=== PATIENT | male | born 1950 | race Caucasian/White ===

== ENCOUNTER 2017-10-11 20:22 | Emergency (ER) | payer MEDICARE, BC ==
[2017-10-11] MEDS ORDERED: Sodium Chloride 0.9% 10 ML Syringe FLUSH PRN (20:38)
[2017-10-11] MEDS ORDERED: Sodium Chloride 0.9% 2.5 ML Syringe FLUSH PRN (20:38)
--- NOTE | 2017-10-11 20:43 | EDM.PDOC ---
ED HPI GENERAL MEDICAL PROBLEM - General Chief Complaint: Neuro Symptoms/Deficits Stated Complaint: FALL Time Seen by Provider: 10/11/17 20:32 - History of Present Illness INITIAL COMMENTS - FREE TEXT/NARRATIVE: HISTORY AND PHYSICAL: History of present illness: The patient is a 66-year-old male who comes via EMS with no stated cardiac pulmonary or neuro disease and presents after having an episode where he said he got very dizzy and then he fell hitting the back of his head and neck. He believes he lost consciousness but he is unable to tell me about any symptomatology prior to this event and he does not feel nauseated or have any chest pain currently. He tells me he had a normal day earlier without fever chills cough chest pain shortness of breath abdominal pain vomiting or diarrhea and he ate his meals. Currently he complains of back of the head pain and neck pain but no chest pain palpitation shortness of breath nausea or abdominal pain. He says that he has generalized weakness and feels weak all over. He has no mid or lower back pain. He is not a very good historian currently he is very slow to answer. The patient denies any alcohol or drug use tonight and says he ate normally earlier. When asked the patient if he felt weak or dizzy earlier he is not answering him somewhat confused but says he did not think that he felt weak earlier Review of systems: As per history of present illness and below otherwise all systems reviewed and negative. Past medical history: As per history of present illness and as reviewed below otherwise noncontributory. Surgical history: As per history of present illness and as reviewed below otherwise noncontributory. Social history: No reported history of drug or alcohol abuse. Family history: As per history of present illness and as reviewed below otherwise noncontributory. Physical exam: Gen.: Well-developed well-nourished man who is nontoxic and speaks very slowly and seems somewhat confused to me and has difficulty following my questioning pattern. Keep in mind that c-collar was maintained for a course of my exam HEENT: Atraumatic, normocephalic, c-collar is in place, there are no midline step-offs tenderness defects of the cervical spine, there is no facial swelling or facial trauma, pupils reactive, negative for conjunctival pallor or scleral icterus, mucous membranes moist, throat clear, neck supple, nontender, trachea midline. EOMs are intact and sclerae are not injected Lungs: Clear to auscultation, breath sounds equal bilaterally, chest nontender. Heart: S1S2, regular, negative for clicks, rubs, or JVD. Abdomen: Soft, nondistended, nontender. Negative for masses or hepatosplenomegaly. Negative for costovertebral tenderness. Pelvis: Stable nontender. Genitourinary: Deferred. Rectal: Deferred. Extremities: Atraumatic, negative for cords or calf pain. Neurovascular unremarkable. Full range of motion but the patient does have some tremulousness of his lower extremities when he tries to bend and extend them as if trying to exert a lot of effort. Patient's upper extremity strength is 5/5 throughout including grasps biceps and triceps and sensory is intact in these areas. Neuro: Awake, alert, oriented to person and place but not time Cranial nerves II through XII unremarkable. . Motor in the lower extremities is 4/5 and upper extremities is 5/5and sensory is grossly unremarkable throughout. Exam nonfocal. back: There are no midline step-offs in his defects of the thoracic or lumbar spine and no soft tissue ecchymosis abrasion contusions or soft tissue swellings are seen. Skin: Turgor is normal there is no diaphoresis and no overt rashes or lesions and there is no evidence of any soft tissue trauma that I can see Diagnostics: EKG CBC CMP alcohol level INR troponin TSH UA UDS CT scan of the head in the C- spine chest x-ray lactic acid Therapeutics: IV O2 monitor IV fluids 2213: After the CT scan results were obtained I consult of the neurosurgeon at [facility] in [place], Dr. Kee; he feels that the patient needs more workup such as CTA of the head and neck or MRI/MRA of the head neck and he is aware that we are unable to do that testing and I do not have neurology backup. He is recommending that we send the CT scan films to him so we can review and he wants the patient to be transferred to [place]. He says to me that he has more concerned about the cervical spine disease causing the syncope rather than a traumatic injury. At 2218 I discussed the case with Dr. Vee in the ER who also accepts the patient. All testing results will be sent with the patient and as of this dictation the patient has not given a urine sample for UA UDS. I will obtain that sample if he produces. Patient on my reevaluation looks much improved and his coloring is better and he is talking and more interactive than when he arrived. He is concerned about the transfer but is accepting. He has no motor deficits in his upper extremities and complains of neck pain but the c- collar will be maintained. He has no other complaints at this time. 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 Treatments [employer]ATE[employer]ETING [employer]ADER: Reports: Cervical Collar, IV/IO neck area Pain Score (Numeric/FACES): 7 - Related Data Allergies Allergy/AdvReac Type Severity Reaction Status Date / Time sulfamethoxazole Allergy Rash Verified 10/11/17 20:30 [From Bactrim] trimethoprim [From Bactrim] Allergy Rash Verified 10/11/17 20:30 Home Meds: Home Meds . [No Known Home Meds] 10/11/17 [History] Past Medical History HEENT History: Reports: None Cardiovascular History: Reports: None Respiratory History: Reports: None Gastrointestinal History: Reports: None Genitourinary History: Reports: None Musculoskeletal History: Reports: None Neurological History: Reports: None Psychiatric History: Reports: None Endocrine/Metabolic History: Reports: None Hematologic History: Reports: None Immunologic History: Reports: None Oncologic (Cancer) History: Reports: None Dermatologic History: Reports: None - Infectious Disease History Infectious Disease History: Reports: None - Past Surgical History Head Surgeries/Procedures: Reports: None Social & Family History - Family History Family Medical History: Noncontributory - Tobacco Use Smoking Status *Q: Current Every Day Smoker Years of Tobacco use: 5 Packs/Tins Daily: 0.5 - Caffeine Use Caffeine Use: Reports: Coffee - Recreational Drug Use Recreational Drug Use: No ED ROS GENERAL - Review of Systems Review Of Systems: ROS reveals no pertinent complaints other than HPI. ED EXAM, GENERAL - Physical Exam Exam: See Below (See dictation) Course - Vital Signs Last Recorded V/S: Last Vital Signs Temp 36.7 C 10/11/17 20:31 Pulse 66 10/11/17 21:24 Resp 18 10/11/17 21:24 BP 118/65 10/11/17 21:24 Pulse Ox 94 L 10/11/17 21:24 - Orders/Labs/Meds Orders: Active Orders 24 hr Category Date Time Status Cardiac Monitoring [RC] . DIRECTED Care 10/11/17 20:37 Active EKG Documentation Completion [RC] STAT Care 10/11/17 20:37 Active Oxygen Therapy, ED [RC] ASDIRECTED Care 10/11/17 20:37 Active Pulse Oximetry [RC] ASDIRECTED Care 10/11/17 20:37 Active Cervical Spine wo Cont [CT] Stat Exams 10/11/17 20:38 Taken Chest 1V Frontal [CR] Stat Exams 10/11/17 20:38 Taken Head wo Cont [CT] Stat Exams 10/11/17 20:38 Taken DRUG SCREEN, URINE [URCHEM] Stat Lab 10/11/17 20:37 Uncollected UA W/MICROSCOPIC [URIN] Stat Lab 10/11/17 20:37 Uncollected Sodium Chloride 0.9% [Normal Saline] 500 ml Med 10/11/17 20:45 Active IV STAT Sodium Chloride 0.9% [Saline Flush] Med 10/11/17 20:38 Active 10 ml FLUSH ASDIRECTED PRN Sodium Chloride 0.9% [Saline Flush] Med 10/11/17 20:38 Active 2.5 ml FLUSH ASDIRECTED PRN Saline Lock Insert [OM.PC] Stat Oth 10/11/17 20:37 Ordered Medication Orders Sodium Chloride (Normal Saline) 500 mls @ 999 mls/hr IV STAT PRADEEP Last Admin: 10/11/17 21:22 Dose: 999 mls/hr Sodium Chloride (Saline Flush) 10 ml FLUSH ASDIRECTED PRN PRN Reason: Keep Vein Open Sodium Chloride (Saline Flush) 2.5 ml FLUSH ASDIRECTED PRN PRN Reason: Keep Vein Open Labs: Laboratory Tests 10/11/17 10/11/17 10/11/17 Range/Units 20:44 20:44 20:44 WBC 7.02 (4.0-11.0) K/uL RBC 4.20 L (4.50-5.90) M/uL Hgb 13.5 (13.0-17.0) g/dL Hct 41.4 (38.0-50.0) % MCV 98.6 H (80.0-98.0) fL MCH 32.1 H (27.0-32.0) pg MCHC 32.6 (31.0-37.0) g/dL RDW Std Deviation 48.9 (28.0-62.0) fl RDW Coeff of Dangelo 14 (11.0-15.0) % Plt Count 206 (150-400) K/uL MPV 8.90 (7.40-12.00) fL Neut % (Auto) 79.1 (48.0-80.0) % Lymph % (Auto) 12.5 L (16.0-40.0) % Dickenson % (Auto) 7.0 (0.0-15.0) % Eos % (Auto) 1.0 (0.0-7.0) % Baso % (Auto) 0.4 (0.0-1.5) % Neut # (Auto) 5.6 (1.4-5.7) K/uL Lymph # (Auto) 0.9 (0.6-2.4) K/uL Dickenson # (Auto) 0.5 (0.0-0.8) K/uL Eos # (Auto) 0.1 (0.0-0.7) K/uL Baso # (Auto) 0.0 (0.0-0.1) K/uL Nucleated RBC % 0.0 /100WBC Nucleated RBCs # 0 K/uL INR 1.04 (0.86-1.11) Lactate (0.20-2.00) mmol/L Sodium 140 (136-146) mmol/L Potassium 4.9 (3.5-5.1) mmol/L Chloride 112 H (98-110) mmol/L Carbon Dioxide 20 L (21-31) mmol/L BUN 16 (6.0-23.0) mg/dL Creatinine 1.3 (0.6-1.5) mg/dL Est Cr Clr Drug Dosing 58.56 mL/min Estimated GFR (MDRD) 55.6 ml/min Glucose 120 H (60-110) mg/dL Calcium 9.6 (8.8-10.8) mg/dL Total Bilirubin 0.2 (0.1-1.5) mg/dL AST 18 (5-40) IU/L ALT 32 (8-54) IU/L Alkaline Phosphatase 42 (40-150) Troponin I < 0.10 (0.0-0.29) NG/ML Total Protein 5.9 L (6.0-8.0) g/dL Albumin 3.9 (3.4-4.8) g/dL Globulin 2.0 (2.0-3.5) g/dL Albumin/Globulin Ratio 2.0 (1.3-2.8) TSH 3rd Generation 0.89 (0.47-5.0) uIU/mL Ethyl Alcohol < 10.0 mg/dL 10/11/17 Range/Units 20:44 WBC (4.0-11.0) K/uL RBC (4.50-5.90) M/uL Hgb (13.0-17.0) g/dL Hct (38.0-50.0) % MCV (80.0-98.0) fL MCH (27.0-32.0) pg MCHC (31.0-37.0) g/dL RDW Std Deviation (28.0-62.0) fl RDW Coeff of Dangelo (11.0-15.0) % Plt Count (150-400) K/uL MPV (7.40-12.00) fL Neut % (Auto) (48.0-80.0) % Lymph % (Auto) (16.0-40.0) % Dickenson % (Auto) (0.0-15.0) % Eos % (Auto) (0.0-7.0) % Baso % (Auto) (0.0-1.5) % Neut # (Auto) (1.4-5.7) K/uL Lymph # (Auto) (0.6-2.4) K/uL Dickenson # (Auto) (0.0-0.8) K/uL Eos # (Auto) (0.0-0.7) K/uL Baso # (Auto) (0.0-0.1) K/uL Nucleated RBC % /100WBC Nucleated RBCs # K/uL INR (0.86-1.11) Lactate 1.1 (0.20-2.00) mmol/L Sodium (136-146) mmol/L Potassium (3.5-5.1) mmol/L Chloride (98-110) mmol/L Carbon Dioxide (21-31) mmol/L BUN (6.0-23.0) mg/dL Creatinine (0.6-1.5) mg/dL Est Cr Clr Drug Dosing mL/min Estimated GFR (MDRD) ml/min Glucose (60-110) mg/dL Calcium (8.8-10.8) mg/dL Total Bilirubin (0.1-1.5) mg/dL AST (5-40) IU/L ALT (8-54) IU/L Alkaline Phosphatase (40-150) Troponin I (0.0-0.29) NG/ML Total Protein (6.0-8.0) g/dL Albumin (3.4-4.8) g/dL Globulin (2.0-3.5) g/dL Albumin/Globulin Ratio (1.3-2.8) TSH 3rd Generation (0.47-5.0) uIU/mL Ethyl Alcohol mg/dL Meds: Medications Generic Name Dose Route Start Last Admin Trade Name Freq PRN Reason Stop Dose Admin Sodium Chloride 500 mls @ 999 mls/hr 10/11/17 20:45 10/11/17 21:22 Normal Saline IV 999 mls/hr STAT PRADEEP Administration Sodium Chloride 10 ml 10/11/17 20:38 Saline Flush FLUSH ASDIRECTED PRN Keep Vein Open Sodium Chloride 2.5 ml 10/11/17 20:38 Saline Flush FLUSH ASDIRECTED PRN Keep Vein Open Departure - Departure Time of Disposition: 22:32 Disposition: DC/Tfer to Acute Hospital 02 Condition: Good Clinical Impression: Syncope, Cervical spine disease - Discharge Information Referrals: PCP,Unknown [Primary Care Provider] - Forms: ED Department Discharge - My Orders Last 24 Hours: My Active Orders 10/11/17 20:37 Cardiac Monitoring [RC] . DIRECTED EKG Documentation Completion [RC] STAT Oxygen Therapy, ED [RC] ASDIRECTED Pulse Oximetry [RC] ASDIRECTED DRUG SCREEN, URINE [URCHEM] Stat UA W/MICROSCOPIC [URIN] Stat Saline Lock Insert [OM.PC] Stat 10/11/17 20:38 Cervical Spine wo Cont [CT] Stat Chest 1V Frontal [CR] Stat Head wo Cont [CT] Stat Sodium Chloride 0.9% [Saline Flush] 10 ml FLUSH ASDIRECTED PRN Sodium Chloride 0.9% [Saline Flush] 2.5 ml FLUSH ASDIRECTED PRN 10/11/17 20:45 Sodium Chloride 0.9% [Normal Saline] 500 ml IV STAT - Assessment/Plan Last 24 Hours: My Active Orders 10/11/17 20:37 Cardiac Monitoring [RC] . DIRECTED EKG Documentation Completion [RC] STAT Oxygen Therapy, ED [RC] ASDIRECTED Pulse Oximetry [RC] ASDIRECTED DRUG SCREEN, URINE [URCHEM] Stat UA W/MICROSCOPIC [URIN] Stat Saline Lock Insert [OM.PC] Stat 10/11/17 20:38 Cervical Spine wo Cont [CT] Stat Chest 1V Frontal [CR] Stat Head wo Cont [CT] Stat Sodium Chloride 0.9% [Saline Flush] 10 ml FLUSH ASDIRECTED PRN Sodium Chloride 0.9% [Saline Flush] 2.5 ml FLUSH ASDIRECTED PRN 10/11/17 20:45 Sodium Chloride 0.9% [Normal Saline] 500 ml IV STAT
[2017-10-11] MEDS ORDERED: Sodium Chloride 0.9% 500 ML IV SCH (20:45)
[2017-10-11 21:10] LABS: CHLORIDE,CL 112 mmol/L (98-110); SODIUM,NA 140 mmol/L (136-146)
[2017-10-11] MEDS ORDERED: Acetaminophen/HYDROcodone 325-7.5 MG Tab ONE (23:01)
[2017-10-11] MEDS ORDERED: Acetaminophen/HYDROcodone 325-7.5 MG Tab PO STA (23:20)
--- NOTE | 2017-10-13 18:37 | CR ---
EXAM DATE: 10/11/17 PATIENT'S AGE: 66 Patient: RUDOLPH HILL Facility: [place], [place] Site . Site : 1950 Study: XRay Chest [id number]/13/2018 9:15:07 PM Ordering Physician: Jerome Maldonado Final Report: INDICATION: Pain and shortness of breath. COMPARISON: None. FINDINGS/IMPRESSION: The exam is limited as the lung apices are not fully included. The visualized lungs appear clear. There is skinfold artifact over the upper right chest. No pleural effusions are evident. Cardiomediastinal contour is within normal limits. Included bones appear normal for age. Dictated by Oscar Rice MD @ 10/11/2017 9:26:10 PM Dictated by: Oscar Rice MD @ 10/11/2017 21:26:39 (Electronic Signature) Report Signed by Proxy. CABRINI MEDICAL CENTERJessica
--- NOTE | 2017-10-13 18:38 | CT ---
EXAM DATE: 10/11/17 PATIENT'S AGE: 66 Patient: RUDOLPH HILL Facility: [place], [place] Site . Site : 1950 Study: CT Spine Cervical [id number]/13/2018 9:21:29 PM Ordering Physician: Jerome Maldonado Final Report: INDICATION: Headache, weakness, neck tilt TECHNIQUE: 1. Computed tomography of the cervical spine was performed without contrast according to standard protocol. 2. Noncontrast CT of the brain was performed with images acquired from skull base to vertex. COMPARISON: Cervical spine MRI dated 11/30/2010. FINDINGS: Head: There is no acute intracranial hemorrhage. Ventricles are of normal size and morphology. No mass effect or midline shift is present. The olivia-white matter differentiation is normal. The visualized portions of the orbits are normal. The visualized portions of the mastoids are normal. The visualized portions of the paranasal sinuses are normal. No fractures are identified. Cervical spine: There is marked levo curvature of the cervical spine centered at C4-C5. There is marked anterolisthesis of C4 over C5 and focal kyphosis at C4-C5. The right inferior articular facet of C4 appears perched and fused to the superior articular facet of C5. The right posterolateral C4 and C5 vertebral bodies are also fused. In comparison, cervical spine MRI dated 11/30/2010 shows mild levocurvature and edema within the right C4-C5 facet joint. There is no acute fracture. No soft tissue abnormality is identified. C2-C3: There is a small disc bulge. There is mild bilateral uncovertebral arthropathy. There is moderate bilateral facet arthropathy. There is no spinal canal stenosis. There is mild right neural foraminal stenosis. C3-C4: Disk configuration is normal. There is mild bilateral uncovertebral arthropathy. There is severe left and mild right facet arthropathy. There is no spinal canal stenosis. There is severe left neural foraminal stenosis. C4-5: Due to the alignment abnormality at this level, there is severe spinal canal stenosis. There is mild bilateral neural foraminal stenosis. C5-C6: There is severe left and mild right uncovertebral arthropathy. There is mild bilateral facet arthropathy. There is no spinal canal. Stenosis. There is mild bilateral neural foraminal stenosis. C6-C7: There is a small disc osteophyte complex. There is moderate bilateral uncovertebral arthropathy. There is mild bilateral facet arthropathy. There is no spinal canal or neural foraminal stenosis. IMPRESSION: 1. No acute intracranial abnormality. 2. 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 Please note that all CT scans at this facility use dose modulation, iterative reconstruction, and/or weight-based dosing when appropriate to reduce radiation dose to as low as reasonably achievable. Dictated by Damion Hollis MD @ Oct 11 2017 9:34PM (Electronic Signature) Report Signed by Proxy. MTDD
--- NOTE | 2017-10-13 20:02 | CT ---
EXAM DATE: 10/11/17 PATIENT'S AGE: 66 Patient: RUDOLPH HILL Facility: [facility], [facility], [place], operated by [facility] Site . Site : 1950 Study: CT-Spine Cervical/CT Head [id number]/13/2018 9:21:29 PM Ordering Physician: Jerome Maldonado Final Report: INDICATION: Headache, weakness, neck tilt TECHNIQUE: 1. Computed tomography of the cervical spine was performed without contrast according to standard protocol. 2. Noncontrast CT of the brain was performed with images acquired from skull base to vertex. COMPARISON: Cervical spine MRI dated 11/30/2010. FINDINGS: Head: There is no acute intracranial hemorrhage. Ventricles are of normal size and morphology. No mass effect or midline shift is present. The olivia-white matter differentiation is normal. The visualized portions of the orbits are normal. The visualized portions of the mastoids are normal. The visualized portions of the paranasal sinuses are normal. No fractures are identified. Cervical spine: There is marked levo curvature of the cervical spine centered at C4-C5. There is marked anterolisthesis of C4 over C5 and focal kyphosis at C4-C5. The right inferior articular facet of C4 appears perched and fused to the superior articular facet of C5. The right posterolateral C4 and C5 vertebral bodies are also fused. In comparison, cervical spine MRI dated 11/30/2010 shows mild levocurvature and edema within the right C4-C5 facet joint. There is no acute fracture. No soft tissue abnormality is identified. C2-C3: There is a small disc bulge. There is mild bilateral uncovertebral arthropathy. There is moderate bilateral facet arthropathy. There is no spinal canal stenosis. There is mild right neural foraminal stenosis. C3-C4: Disk configuration is normal. There is mild bilateral uncovertebral arthropathy. There is severe left and mild right facet arthropathy. There is no spinal canal stenosis. There is severe left neural foraminal stenosis. C4-5: Due to the alignment abnormality at this level, there is severe spinal canal stenosis. There is mild bilateral neural foraminal stenosis. C5-C6: There is severe left and mild right uncovertebral arthropathy. There is mild bilateral facet arthropathy. There is no spinal canal. Stenosis. There is mild bilateral neural foraminal stenosis. C6-C7: There is a small disc osteophyte complex. There is moderate bilateral uncovertebral arthropathy. There is mild bilateral facet arthropathy. There is no spinal canal or neural foraminal stenosis. IMPRESSION: 1. No acute intracranial abnormality. 2. 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 Please note that all CT scans at this facility use dose modulation, iterative reconstruction, and/or weight-based dosing when appropriate to reduce radiation dose to as low as reasonably achievable. Dictated by Damion Hollis MD @ Oct 11 2017 9:34PM Signed by: Damion Hollis MD @10/11/2017 10:03:41 PM (Electronic Signature) Report Signed by Proxy. MTDD
== END 2017-10-11 23:10 ==
LOC: MW.ED 20:22
DX: M50.30 Other cervical disc degeneration, unspecified cervical region (principal); R55 Syncope and collapse; F17.210 Nicotine dependence, cigarettes, uncomplicated; Z88.1 Allergy status to other antibiotic agents; Z88.2 Allergy status to sulfonamides
CPT/HCPCS: 36415; 70450; 71045; 72125; 80053; 83605; 84443; 84484; 85025; 85610; 93005; 96360; 99285; A9270; G0480; J7040; 99291